=== PATIENT | male | born 1945 | race Caucasian/White ===

== ENCOUNTER 2017-08-04 10:32 | Outpatient (CLI) | payer MEDICARE, BC ==
--- NOTE | 2017-08-04 11:39 | RAD ---
CHEST TWO VIEWS: History: Dyspnea. Comparison: 09-13-14 FINDINGS: Two views chest. Left sided transvenous pacemaker in unchanged position. Normal cardiac silhouette. P ulmonary vessels and hilum are normal. Costophrenic angles are clear. Hyperinflation with chronic morris nges. No mass. No consolidation. No pneumothorax or osseous abnormality. IMPRESSION: No acute cardiopulmonary process. POS: [facility]
== END 2017-08-04 10:33 | disposition home or self-care (01) ==
LOC: RAD 10:32
PROVIDERS: ATTEND Internal Medicine Pulmonary Disease
DX: R06.00 Dyspnea, unspecified (principal)
CPT/HCPCS: 71046

== ENCOUNTER 2018-01-18 10:05 | Outpatient (CLI) | payer MEDICARE, BC ==
--- NOTE | 2018-01-18 11:49 | RAD ---
CHEST PA AND LATERAL: Date: 01/18/18 HISTORY: 72-year-old male with history of dyspnea. COMPARISON: 08/04/17. FINDINGS: Left ICD. Mild stable biapical pleural thickening. No confluent pneumonia, overt edema, or pleural ef fusion. Old granulomatous disease. IMPRESSION: Stable mild chronic changes. No acute intrathoracic disease. POS: [facility]
== END 2018-01-18 10:06 | disposition home or self-care (01) ==
LOC: RAD 10:05
PROVIDERS: ATTEND Internal Medicine Pulmonary Disease
DX: R06.00 Dyspnea, unspecified (principal)
CPT/HCPCS: 71046

== ENCOUNTER 2018-04-18 09:57 | Outpatient (CLI) | payer MEDICARE, BC ==
[2018-04-18 11:40] LABS: #Basophils 0.1 thou/uL (0.0-0.2); #Eosinphils 0.1 thou/uL (0.0-0.7); #Lymphocytes 2.8 thou/uL (1.20-3.40); #Monocytes 0.9 thou/uL (0.11-0.59); #Neutrophils 5.4 thou/uL (1.40-6.50); %Basophils 0.9 % (0.0-1.0); %Eosinophils 0.9 % (0.0-10.0); %Lymphocytes 30.1 % (21.0-51.0); %Monocytes 9.7 % (0.0-10.0); %Neutrophils 58.3 % (42.0-75.0); Hemoglobin 14.9 g/dL (14.0-18.0); Mean Corpuscular HGB CONC 32.7 g/dL (32.0-36.0); Mean Corpuscular Hemoglobin 31.1 pg (27.0-31.0); Mean Corpuscular Volume 95.2 fL (78.0-98.0); Mean Platelet Volume 8.4 fL (7.4-10.4); Platelet Count 248 thou/uL (130-400); RBC Distribution Width 12.5 % (11.5-14.5); Red Blood Cell (RBC) Count 4.79 mill/uL (4.70-6.10); White Blood Cell (WBC) Count 9.3 thou/uL (4.8-10.8)
[2018-04-18 11:48] LABS: PTT 31.7 SEC (22.9-36.1); Prothrombin Time 13.1 SEC (12.0-14.7)
[2018-04-18 12:12] LABS: ALT (SGPT) 11 U/L (8-55); AST (SGOT) 14 U/L (5-34); Albumin 4.5 g/dL (3.4-4.8); Alkaline Phosphatase 78 U/L (40-150); Anion Gap 11 mmol/L (10-20); BUN (Urea Nitrogen) 19 mg/dL (8.4-25.7); Bilirubin, Direct 0.3 mg/dL (0.1-0.3); Bilirubin, Total 0.8 mg/dL (0.2-1.2); Calc. Creatinine Clearance 0 mL/min (70-130); Calcium 9.6 mg/dL (7.8-10.44); Carbon Dioxide 25 mmol/L (23-31); Chloride 106 mmol/L (98-107); Estimated GFR-MDRD 55; Globulin 3.3 g/dL (2.4-3.5); Glucose 96 mg/dL (83-110); Potassium 4.5 mmol/L (3.5-5.1); Protein, Total 7.8 g/dL (5.8-8.1)
[2018-04-18 12:23] LABS: Sodium 137 mmol/L (136-145)
== END 2018-04-18 09:58 | disposition home or self-care (01) ==
LOC: LABBT 09:57
PROVIDERS: ATTEND Internal Medicine Cardiovascular Disease
DX: Z01.812 Encounter for preprocedural laboratory examination (principal); I47.2 Ventricular tachycardia
CPT/HCPCS: 80053; 80076; 85025; 85610; 85730

== ENCOUNTER → 2018-04-20 | Day surgery (SDC) | payer MEDICARE, BC ==
[2018-04-18 10:51] VITALS: BMI 27.8
[~2018-04-20] MED LIST: Fentanyl 100 MCG/2 ML VIAL ONE; Heparin 10,000 UNITS/1 ML VIAL ONE; Iopamidol 370 76% 100 ML VIAL ONE; Lidocaine 1% (PF) 30 ML VIAL ONE; Midazolam HCl 2 mg/2 ml Vial ONE; Nitroglycerin 100MG/250ML BOT 250 ML ONE; Verapamil 5 MG/2 ML VIAL ONE
[2018-04-20 07:21] LABS: Cardiac Risk 2.7 (Less than 4.5)
== END ==
LOC: CCL 05:53
PROVIDERS: ATTEND Internal Medicine Cardiovascular Disease
PROC: 4A023N7 Measurement of Cardiac Sampling and Pressure, Left Heart, Percutaneous Approach (ICD-10-PCS; principal; 2018-04-20)
PROC: B2111ZZ Fluoroscopy of Multiple Coronary Arteries using Low Osmolar Contrast (ICD-10-PCS; 2018-04-20)
DX: I25.10 Atherosclerotic heart disease of native coronary artery without angina pectoris (principal); I25.84 Coronary atherosclerosis due to calcified coronary lesion; I10 Essential (primary) hypertension; I47.2 Ventricular tachycardia; Z79.51 Long term (current) use of inhaled steroids; Z79.899 Other long term (current) drug therapy; Z88.8 Allergy status to other drugs, medicaments and biological substances
CPT/HCPCS: 80061; 93458; C1769; C1887; 36415; 99152; J1644; J2001; J2250; J3010

== ENCOUNTER 2019-03-15 08:29 | Outpatient (CLI) | payer MEDICARE, BC ==
--- NOTE | 2019-03-15 15:57 | NM ---
NUCLEAR MEDICINE BRAIN IMAGING: HISTORY: REM sleep behavior disorder TECHNIQUE: A Raffi scan with axial tomographic images of the brain was obtained 3 hours following the intravenous administration of 5mCi I-123 Ioflupane. The patient was pretreated with 130 mg of oral potassium iodide 1 hour prior to the injection. FINDINGS: There is normal symmetric uptake in the striata bilaterally, demonstrating symmetric, crescent-shaped focal regions of activity mirrored about the median plane. IMPRESSION: Normal exam.
== END 2019-03-15 08:30 | disposition home or self-care (01) ==
LOC: NM 08:29
PROVIDERS: ATTEND Psychiatry & Neurology Neurology
DX: G47.52 REM sleep behavior disorder (principal)
CPT/HCPCS: 78607; A9584

== ENCOUNTER 2019-04-19 13:08 | Outpatient (CLI) | payer MEDICARE, BC ==
--- NOTE | 2019-04-19 14:09 | RAD ---
Exam: Chest 2 views HISTORY: Dyspnea COMPARISON: 01/18/2018 FINDINGS: Left sided transvenous pacemaker, unchanged. Normal cardiac silhouette Hyperinflation with chronic changes. No masses or consolidation. No pleural effusion or pneumothorax. IMPRESSION: No significant interval change.
== END 2019-04-19 13:09 | disposition home or self-care (01) ==
LOC: RAD 13:08
PROVIDERS: ATTEND Internal Medicine Pulmonary Disease
DX: R06.00 Dyspnea, unspecified (principal)
CPT/HCPCS: 71046

== ENCOUNTER 2020-05-06 13:50 | Outpatient (CLI) | payer MEDICARE, BC ==
--- NOTE | 2020-05-06 14:58 | RAD ---
PA AND LATERAL CHEST: Date: 05/06/2020 HISTORY: Dyspnea. COMPARISON: 02/11/2016 study. FINDINGS: Heart size within normal limits. Pacemaker is present. Lungs are clear of infiltrates. There are arth ritic changes of the spine. IMPRESSION: No active intrathoracic disease. POS: [facility]
== END 2020-05-06 13:51 | disposition home or self-care (01) ==
LOC: BICRAD 13:50
PROVIDERS: ATTEND Internal Medicine Pulmonary Disease
DX: R06.00 Dyspnea, unspecified (principal)
CPT/HCPCS: 71046

== ENCOUNTER 2020-05-14 09:14 | Outpatient (CLI) | payer MEDICARE, BC ==
--- NOTE | 2020-05-14 15:17 | NM ---
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 Rule out Parkinson's disease. TECHNIQUE: Premedication with 130 mg potassium iodide PO 1 hour prior to radiopharmaceutical injection. 4.5 mCi I-123 Ioflupane injected IV. 3 hour delayed axial SPECT images obtained through the brain. FINDINGS: There is symmetrical, homogeneous uptake in the bilateral caudate nucleus and globus pallidus. There is no interval change compared to 03/15/2019. IMPRESSION: Normal. POS: [facility]
== END 2020-05-14 09:15 | disposition home or self-care (01) ==
LOC: NM 09:14
PROVIDERS: ATTEND Psychiatry & Neurology Neurology
DX: G47.52 REM sleep behavior disorder (principal); G47.33 Obstructive sleep apnea (adult) (pediatric)
CPT/HCPCS: 78803; A9584

== ENCOUNTER 2021-03-26 10:36 | Outpatient (CLI) | payer MEDICARE, BC | END 2021-03-26 10:37 | disposition home or self-care (01) | LOC: BICRAD 10:36 | PROVIDERS: ATTEND Internal Medicine Pulmonary Disease | DX: R06.00 Dyspnea, unspecified (principal); J98.4 Other disorders of lung | CPT/HCPCS: 71046 ==

== ENCOUNTER 2021-03-31 13:11 | Outpatient (CLI) | payer MEDICARE, BC ==
[2021-03-31 14:12] LABS: Prothrombin Time 11.2 sec (9.5-12.1)
[2021-03-31 14:15] LABS: Anion Gap 12 mmol/L (10-20); BUN (Urea Nitrogen) 16 mg/dL (8.4-25.7); Calc. Creatinine Clearance 0 mL/min (70-130); Calcium 9.7 mg/dL (7.8-10.44); Carbon Dioxide 23 mmol/L (23-31); Chloride 108 mmol/L (98-107); Glucose 89 mg/dL (83-110); Potassium 4.1 mmol/L (3.5-5.1); Sodium 139 mmol/L (136-145)
[2021-03-31 14:16] LABS: Hemoglobin 14.5 g/dL (13.5-17.5); Mean Corpuscular HGB CONC 32.3 g/dL (32.0-36.0); Mean Corpuscular Hemoglobin 30.1 pg (27.0-33.0); Mean Corpuscular Volume 93.3 fl (81.2-95.1); Mean Platelet Volume 10.5 fl (7.4-10.4); Platelet Count 200 10x3/uL (150-450); RBC Distribution Width 14.2 % (11.5-14.5); Red Blood Cell (RBC) Count 4.81 10x6/uL (4.32-5.72); White Blood Cell (WBC) Count 6.4 10x3/uL (3.5-10.5)
[2021-04-01 08:05] LABS: SARS-CoV-2 PCR by NAA Not Detected (NotDetected)
== END 2021-03-31 13:12 | disposition home or self-care (01) ==
LOC: LABBT 13:11
PROVIDERS: ATTEND Internal Medicine Cardiovascular Disease
DX: Z01.812 Encounter for preprocedural laboratory examination (principal); Z20.822 Contact with and (suspected) exposure to COVID-19; J44.9 Chronic obstructive pulmonary disease, unspecified
CPT/HCPCS: 80048; 85027; 85610; U0003; U0005; 94060; 94726; 94729; 94760

== ENCOUNTER 2021-04-03 06:56 | Day surgery (SDC) | payer MEDICARE, BC ==
[2021-04-02 11:28] VITALS: BMI 28.4
[2021-04-03] MEDS ORDERED: Vancomycin 1 GM/200 ML BAG ONE (07:51)
[2021-04-03] MEDS ORDERED: Vancomycin HCl 500 MG VIAL ONE (07:51)
[2021-04-03] MEDS ORDERED: Fentanyl 100 MCG/2 ML VIAL ONE (08:39)
[2021-04-03] MEDS ORDERED: Midazolam HCl 2 mg/2 ml Vial ONE (08:39)
[2021-04-03] MEDS ORDERED: CEFAZOLIN 1 GM VIAL ONE (09:45)
[2021-04-03] MEDS ORDERED: Gentamicin 80 MG/2 ML VIAL ONE (09:45)
[2021-04-03] MEDS ORDERED: Lidocaine 1% (PF) 30 ML VIAL ONE (09:45)
== END 2021-04-03 14:42 | disposition home or self-care (01) ==
LOC: SDC 06:56
PROVIDERS: ATTEND Internal Medicine Cardiovascular Disease
PROC: 0JPT0PZ Removal of Cardiac Rhythm Related Device from Trunk Subcutaneous Tissue and Fascia, Open Approach (ICD-10-PCS; principal; 2021-04-03)
PROC: 0JH606Z Insertion of Pacemaker, Dual Chamber into Chest Subcutaneous Tissue and Fascia, Open Approach (ICD-10-PCS; 2021-04-03)
DX: I49.5 Sick sinus syndrome (principal); I47.2 Ventricular tachycardia; I25.10 Atherosclerotic heart disease of native coronary artery without angina pectoris; I10 Essential (primary) hypertension; J44.9 Chronic obstructive pulmonary disease, unspecified; Z79.899 Other long term (current) drug therapy; Z87.891 Personal history of nicotine dependence; Z88.8 Allergy status to other drugs, medicaments and biological substances; Z91.018 Allergy to other foods; Z95.0 Presence of cardiac pacemaker
CPT/HCPCS: 33228; C1763; C1785; 99152; J0690; J1580; J2001; J2250; J3010; J3370

== ENCOUNTER 2022-03-19 14:35 | Outpatient (CLI) | payer MEDICARE, BC | END 2022-03-19 14:36 | disposition home or self-care (01) | LOC: MRI 14:35 | PROVIDERS: ATTEND Neurological Surgery | DX: M54.17 Radiculopathy, lumbosacral region (principal); M51.26 Other intervertebral disc displacement, lumbar region; M51.36 Other intervertebral disc degeneration, lumbar region | CPT/HCPCS: 72148 ==

== ENCOUNTER 2022-05-06 13:32 | Outpatient (CLI) | payer MEDICARE, BC | END 2022-05-06 13:33 | disposition home or self-care (01) | LOC: RAD 13:32 | PROVIDERS: ATTEND Internal Medicine | DX: J44.1 Chronic obstructive pulmonary disease with (acute) exacerbation (principal) | CPT/HCPCS: 71046 ==